=== PATIENT | male | born 1960 | race Hispanic/Latino ===

== ENCOUNTER → 2023-12-28 | Outpatient (CLI) | payer OTHER ==
--- NOTE | 2024-01-02 14:24 | HMCSR ---
APPROVED REPORT EXAM: Two-dimensional and M-mode echocardiogram with Doppler and color Doppler. INDICATION ICD: Non-rheumatic aortic valve regurgitation I35.1 2D Dimensions RVDd5.6 cmLVEF(%)29.8 (>50%)LVED Vol(simp.)180.0 mL IVSd1.2 (0.7-1.1cm)FS(%)14 %LVES Vol(simp.)109.0 mL LVDd5.3 (3.8-5.6cm)Ao Root(2D)4.1 (2.0-3.7cm)LVEF(%, simp.)40 % PWd1.2 (0.7-1.1cm)LVOT diam2.5 (1.8-2.4cm)LA ESV INDEX (BP)44.23 mL/m2 LVDs4.5 (2.5-4.0cm)IVC diam2.2 cm Aortic Valve AoV Vmax2.2 m/Giuseppe Peak GR19.6 mmHgLVOT Vmax1.0 m/s AoV VTI0.5 mAo Mean GR12.2 mmHgLVOT VTI0.22 m MIKAL (VMAX)2.1 cm2Al P1/2T471 msAVA (VTI) 2.1 cm2 Mitral Valve MV E Vmax53.5 cm/sDECEL Znjn747 ms MV A Vmax40.4 cm/sP 1/2 T54 ms E/A ratio1.3MVA (PHT)4.0 cm2 MR Max PG61 mmHg TDI E/E' Medial8.2E/E' Lateral5.7 Pulmonary Valve PV Vmax0.9 m/sPV VTI0.20 mPV Mean GR2 mmHg PV Peak GR3.3 mmHgPI End Annemarie. Pj 0.9 cm/s Tricuspid Valve TR Vmax2.4 m/sRAP (EST) 8 czPmCEPG10.4 mmHg TR Peak GR22.4 mmHg Left Ventricle Left ventricular cavity size is normal. There is mild concentric left ventricular hypertrophy. LVEF i s 40%. No left ventricle thrombus noted on this study. Indeterminate diastolic dysfunction. Right Ventricle The right ventricle is moderately dilated. The right ventricular systolic function is normal. Atria The left atrium is moderately dilated. The right atrium is moderately dilated. Aortic Valve Aortic valve is trileaflet. Aortic valve leaflets are sclerotic but open well. Mild aortic regurgitat ion. There is no aortic valvular stenosis. Mitral Valve Mitral valve leaflets are mildly slcerotic but open well. Mitral regurgitation is trace. There is no mitral valve stenosis. Tricuspid Valve The tricuspid valve leaflets appear normal. There is trace tricuspid regurgitation. Right ventricular systolic pressure is estimated at 30 mmHg. Pulmonic Valve The pulmonic valve leaflets are thin and pliable; valve motion is normal. There is trace pulmonic lianna vular regurgitation. Great Vessels Aortic root is dilated at 4.1cm. The ascending aorta is dilated at 5.1cm. IVC is dilated and collapse s >50% with inspiration. Pericardium No pericardial effusion. Conclusion Left ventricular cavity size is normal. There is mild concentric left ventricular hypertrophy. LVEF is 40%. The right ventricle is moderately dilated. The left atrium is moderately dilated. The right atrium is moderately dilated. Aortic valve is trileaflet. Aortic valve leaflets are sclerotic but open well. Mild aortic regurgitation. Mitral valve leaflets are mildly slcerotic but open well. Mitral regurgitation is trace. There is trace tricuspid regurgitation. Right ventricular systolic pressure is estimated at 30 mmHg. There is trace pulmonic valvular regurgitation. Aortic root is dilated at 4.1cm. IVC is dilated and collapses >50% with inspiration. No pericardial effusion.
== END | disposition home or self-care (01) ==
LOC: SHCH 14:11
PROVIDERS: ATTEND Internal Medicine Cardiovascular Disease
DX: I08.0 Rheumatic disorders of both mitral and aortic valves (principal)
CPT/HCPCS: 93306

== ENCOUNTER → 2024-01-13 | Outpatient (CLI) | payer OTHER ==
[2024-01-13 12:59] LABS: CREATININE 1.2 mg/dL (0.5-1.3); POTASSIUM 4.8 mmol/L (3.5-5.1)
== END | disposition home or self-care (01) ==
LOC: LAB 08:53
PROVIDERS: ATTEND Internal Medicine Cardiovascular Disease
DX: I10 Essential (primary) hypertension (principal)
CPT/HCPCS: 36415; 80048

== ENCOUNTER → 2024-01-31 | Outpatient (CLI) | payer OTHER ==
[2024-01-31 12:41] LABS: CREATININE 1.5 mg/dL (0.5-1.3); POTASSIUM 4.9 mmol/L (3.5-5.1)
== END | disposition home or self-care (01) ==
LOC: LAB 10:33
PROVIDERS: ATTEND Internal Medicine Cardiovascular Disease
DX: I10 Essential (primary) hypertension (principal)
CPT/HCPCS: 36415; 80048

== ENCOUNTER → 2024-02-15 | Outpatient (CLI) | payer OTHER ==
[2024-02-15] MEDS: REGADENOSON 0.4 MG/5 ML PF SYG IVP ONE (14:08)
--- NOTE | 2024-02-17 08:00 | HMCSR ---
APPROVED REPORT Height: 5 ft 10in Weight: 235 lbs TEST INDICATIONS CAD The imaging protocol used to acquire images was Rest Tc-99m/stress Tc-99m 1 day Consent: The procedure was explained and understood by the patient. Informerd consent was witnessed Asael Walters RN First, low dose rest was performed then high dose stress. RESTING DATA: The resting ekg shows: Atrial Fibrillation Rest SPECT myocardial perfusion imaging was performed in supine position 68 minutes following the int ravenous injection of 10.5 mCi of Tc-99 Sestamibi. Time of rest injection: 09:15: Date: 02/15/2024 Time of rest imagin:23: Date: 02/15/2024 PHARMACOLOGIC STRESS: Pharmacologic stress test was performed by injecting regadenoson 0.4 mg IV push followed by the intra venous injection of 34.6 mCi of Tc-99 Sestamibi. Time of stress injection: 10:55: Date: 02/15/2024 Time of stress imagin:49: Date: 02/15/2024 Heart Rate at time of stress injection: 74 bpm. Gated Stress SPECT was performed 114 minutes after stress injection. The images were gated to evaluate regional wall motion and calculate left ventricular ejection fracti on. STRESS DETAILS Reason for Termination: Infusion complete Stress Symptoms: Dyspnea Max HR Achieved: 93 bpm % of APMHR Achieved: 60 Max Blood Pressure: 127/66 mmHg Stress ECG: Atrial Fibrillation LEFT VENTRICLE Size: The left ventricular size is normal. Systolic Function:The left ventricular systolic function is mildly decreased. Wall Motion: Global hypokinesis. The left ventricular ejection fraction was calculated to be 47%.TID = . LV PERFUSION Partially reversible eugene-lateral defect. Predominantly fixed inferior thinning. Conclusion The left ventricular size is normal. The left ventricular systolic function is mildly decreased. Global hypokinesis. Partially reversible eugene-lateral defect. Predominantly fixed inferior thinning. The left ventricular ejection fraction was calculated to be 47%.
== END | disposition home or self-care (01) ==
LOC: SHCH 08:57
PROVIDERS: ATTEND Internal Medicine Cardiovascular Disease
DX: I48.91 Unspecified atrial fibrillation (principal); I50.20 Unspecified systolic (congestive) heart failure; I25.10 Atherosclerotic heart disease of native coronary artery without angina pectoris; R06.00 Dyspnea, unspecified
CPT/HCPCS: 78452; 93017; J2785; A9500 ×2

== ENCOUNTER → 2024-02-21 | Outpatient (CLI) | payer OTHER ==
[~2024-02-21] MED LIST: IOHEXOL-350 50ML VIAL IV ONE
--- NOTE | 2024-02-21 12:49 | HMCIMG ---
CT CHEST W/WO CONTRAST HISTORY: Shortness of breath COMPARISON: None TECHNIQUE: Multiple sequential axial images of the chest were obtained from the thoracic inlet through upper abdomen. Patient was given 50 cc of Omnipaque through intravenous route. FINDINGS: There is no evidence of pulmonary nodule or parenchymal disease. There are mild interstitial fibrosis. There is thoracic aortic aneurysm measuring 4.8 x 5 cm. No pleural effusion or pericardial effusion is seen. There is no evidence of pneumothorax. There are normal size mediastinal and hilar lymph nodes. The heart is not enlarged. Degenerative changes of the thoracolumbar spine are present. There is no evidence of adrenal nodule. IMPRESSION: 1. No evidence of pulmonary nodule or effusion is seen. Thoracic aortic aneurysm measuring 4.8 x 5 cm. Small hiatal hernia is seen. CT was performed with one or more following dose reduction techniques: automated exposure control, adjustment of the mA and kv according to patient's size, or use of a iterative reconstruction technique.
== END | disposition home or self-care (01) ==
LOC: RAH 10:47
PROVIDERS: ATTEND Internal Medicine Cardiovascular Disease
DX: I71.20 Thoracic aortic aneurysm, without rupture, unspecified (principal); R06.02 Shortness of breath; K44.9 Diaphragmatic hernia without obstruction or gangrene; I38 Endocarditis, valve unspecified; M47.815 Spondylosis without myelopathy or radiculopathy, thoracolumbar region
CPT/HCPCS: 71270; Q9967

== ENCOUNTER 2024-03-20 07:02 | Day surgery (SDC) | payer OTHER ==
[2024-03-16 09:10] LABS: BASOPHILS # (AUTO) 0.02 K/uL (0.00-0.20); BASOPHILS % (AUTO) 0.3 % (0.0-5.0); EOSINOPHILS % (AUTO) 1.5 % (0.0-8.0); HEMATOCRIT 54.1 % (42-54); IMMATURE GRANULOCYTE ABSOLUTE 0.02 K/uL (0-1); LYMPHOCYTES # (AUTO) 2.8 K/uL (1.0-4.8); LYMPHOCYTES % (AUTO) 41.8 % (21.0-51.0); MEAN CORPUSCULAR HGB CONC 33.8 g/dL (32.0-36.0); MEAN CORPUSCULAR VOLUME 88.7 fL (79-99); MONOCYTES # (AUTO) 0.5 K/uL (0.1-1.0); NEUTROPHILS # (AUTO) 3.3 K/uL (1.8-7.7); NEUTROPHILS % (AUTO) 49.1 % (40.0-77.0); PLATELET COUNT (AUTO) 136 K/uL (130-400); RED CELL DISTRIBUTION WIDTH 14.5 % (11.0-15.5); WHITE BLOOD COUNT (AUTO) 6.8 K/uL (4.8-10.8)
[2024-03-16 09:11] LABS: APPEARANCE,URINE CLEAR (CLEAR); BILIRUBIN,URINE NEGATIVE (NEGATIVE); GLUCOSE, URINE (UA) NEGATIVE (NEGATIVE); KETONES,URINE NEGATIVE (NEGATIVE); LEUKOCYTE ESTERASE ,URINE NEGATIVE Leu/uL (NEGATIVE); NITRATE,URINE NEGATIVE (NEGATIVE); OCCULT BLOOD,URINE NEGATIVE (NEGATIVE); PH,URINE 5.5 (5.0-8.0); PROTEIN,URINE 10 mg/dL (NEGATIVE); UROBILINOGEN,URINE 0.2 mg/dL (0.2-1.0)
[2024-03-16 09:12] LABS: ADD UA MICROSCOPIC YES; COLOR,URINE LIGHT-YELLOW (YELLOW)
[2024-03-16 09:14] LABS: WBC,URINE 0-1 /HPF (0-1)
[2024-03-16 09:24] LABS: POTASSIUM 4.5 mmol/L (3.5-5.1)
[2024-03-16 09:26] LABS: INR 0.98 (0.85-1.15)
--- NOTE | 2024-03-16 09:27 | EKG ---
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
[2024-03-16 09:31] VITALS: BP 127/76; PULSE 100; RESP 18; TEMP 96.8
[2024-03-16 09:32] LABS: B-TYPE NATRIURETIC PEPTIDE 96 pg/mL (0-100)
--- NOTE | 2024-03-16 10:31 | HMCIMG ---
Exam Type: CHEST 1VW Clinical Information: PREOP Comparison: None Findings: The lungs are clear of infiltrates. The heart is normal in size. The bony and soft tissue structures of the chest are unremarkable. Impression: Clear lungs.
--- NOTE | 2024-03-17 16:52 | NUR ---
report dr rojas notified pt held eliquis 72 hrs vs 48hr. ok to proceed
[2024-03-20] VITALS (8 sets, daily range): BP systolic 118–142; BP diastolic 75–91; PULSE 75–87; RESP 14–17; TEMP 97.2
[~2024-03-20] VITALS: Ht 182.9 cm; Wt 103.3 kg
[~2024-03-20 07:02] MED LIST changes: +APIX5TAB PO; -IOHEXOL-350 50ML VIAL IV ONE; +METO-391 PO; +[UNRECOGNIZED DRUG - CODE] PO; +[UNRECOGNIZED DRUG - OTHER] PO; +[UNRECOGNIZED DRUG - OTHER] PO; +moringa PO
[2024-03-20] MEDS ORDERED: 0.9%NACL 1000ML 1,000 ML IV SCH ×2 (07:30→11:30)
[2024-03-20] MEDS ORDERED: LIDOCAINE HCL 400MG/20ML VIAL ONE (09:11)
[2024-03-20] MEDS ORDERED: IOHEXOL-350 75 ML VIAL IV ONE (09:11)
[2024-03-20] MEDS ORDERED: HEParin-NS 1,000 UNIT/500 ML 1,000 ML IV ONE (09:11)
[2024-03-20] MEDS ORDERED: SODIUM BICARB 50MEQ 50ML VIAL 50 ML ONE (09:11)
[2024-03-20] MEDS ORDERED: HEParin 10,000 UNIT/10ML (1,000 UNIT/ML) VIAL ONE (09:11)
[2024-03-20] MEDS ORDERED: NITROGLYCERIN 50MG VIAL ONE (09:12)
[2024-03-20] MEDS ORDERED: niCARDIpine 25MG INJ IV ONE (09:12)
[2024-03-20] MEDS ORDERED: MEPERIDINE-PF 50 MG/ML SYG ONE (09:34)
[2024-03-20] MEDS ORDERED: MIDAZOLAM HCL 1 MG/ML 2ML VIAL ONE ×2 (09:34→10:20)
[2024-03-20] MEDS ORDERED: IOHEXOL-350 50ML VIAL IV ONE (10:27)
[2024-03-20] MEDS ORDERED: SACU1TAB PO (11:58)
--- NOTE | 2024-03-20 13:29 | NUR ---
VAS BAND REMOVED RIGHT RADIAL SITE ASYMPTOMATIC. DRESSED WITH STERILE GAUZE AND TEGADERM.
--- NOTE | 2024-03-20 14:27 | PR ---
PROCEDURES: * Left heart catheterization. * Selective right and left coronary arteriogram. * Placement of a pigtail catheter in the aortic root. * Aortic root angiogram. * Conscious sedation for 1 hour. INDICATIONS: * Cardiomyopathy. * Abnormal Lexiscan Cardiolite. * Aortic insufficiency. * Ascending aortic aneurysm. COMPLICATIONS: None. TOTAL CONTRAST: 93 mL. APPROACH: Right radial approach. DESCRIPTION OF PROCEDURE: The patient was taken to the cardiac sleep lab technician after the appropriate operative consents were signed. He was prepped and draped in the usual fashion. After conscious sedation was administered, the right radial artery region was infiltrated with 2% Xylocaine without epinephrine. A 6-Icelandic slender radial sheath was advanced in retrograde fashion by modified Seldinger technique. It was fairly evident that the patient had a very tortuous brachiocephalic access which made cannulation of the coronaries quite difficult and exchanged for R2P 6-Icelandic slender 75 sheath which was placed in the ascending aorta just proximal to the arch takeoff. At this point, a TIG 4 catheter was placed in the left ventricular cavity over an indwelling wire. Left ventricular end-diastolic pressure measurement was obtained. Ventriculography was deferred. The EF was 40% by echocardiography. Pullback revealed no aortic stenosis. The TIG 4 was cannulated into the right coronary artery. This was imaged in multiplane. This was a large ectatic vessel that gave rise to an acute marginal large PDA and PLVB system. There were no significant lesions in the right coronary artery. The left coronary artery was subselectively imaged by TIG 4 catheter, then finally we changed to an FL4 and then FL5 and then we finally elected to use an XB 4 guide. This was selected into the left main and unfortunately was deep seated into the LAD, however, there was no jonny. Imaging was obtained with adequate filling of both the LAD system and a circumflex. The left main was normal and free of disease, bifurcated into LAD, and circumflex. The LAD was a large vessel that gave rise to a large branching diagonal and ongoing LAD. There were no significant lesions in the LAD system. The circumflex was a large vessel that gave rise to a large obtuse marginal branch. The circumflex system was free of disease. At this point, a pigtail catheter was placed in the aortic root. Aortic root angiogram was performed in MACANESE projection. This identified the presence of 2+ aortic insufficiency. The aortic root was markedly dilated. At this point, the procedure was completed, the catheter and the sheath were pulled over an indwelling wire, and a radial band was applied with good hemostasis. The patient tolerated the procedure well and left the cardiac sleep lab technician in stable condition. FINAL IMPRESSION: * Large, normal epicardial coronary arteries. * Cardiomyopathy with EF of 40% by echocardiography. * No aortic stenosis. * 2+ AI. PLAN: Continue to optimize medical management. TID: [id number] RECEIPT: [id number]
== END 2024-03-20 15:01 | disposition home or self-care (01) ==
LOC: DAH 07:02
PROVIDERS: ATTEND Internal Medicine Cardiovascular Disease
DX: R94.39 Abnormal result of other cardiovascular function study (principal); I35.1 Nonrheumatic aortic (valve) insufficiency; I71.21 Aneurysm of the ascending aorta, without rupture; I42.9 Cardiomyopathy, unspecified; I25.118 Atherosclerotic heart disease of native coronary artery with other forms of angina pectoris; I50.42 Chronic combined systolic (congestive) and diastolic (congestive) heart failure; I48.19 Other persistent atrial fibrillation; N18.30 Chronic kidney disease, stage 3 unspecified; E66.9 Obesity, unspecified; Z68.32 Body mass index [BMI] 32.0-32.9, adult; Z82.49 Family history of ischemic heart disease and other diseases of the circulatory system; Z79.899 Other long term (current) drug therapy; Z79.01 Long term (current) use of anticoagulants
CPT/HCPCS: 80048; 83880; 85025; 85610; 85730; 81001; 36415; 71045; 93005; 93458; 93567; 82948; C1887 ×2; C1769; A4649; C1894; J3490 ×4; J1644 ×2; J2250 ×2; J2175; Q9967 ×2; A4215; A4222; A6260; A4221; A4663; A4216; A4606; A4223 ×3; 96360; 96361; 99156; 99157

== ENCOUNTER → 2024-05-17 | Outpatient (CLI) | payer OTHER ==
[~2024-05-17] MED LIST changes: +SACU1TAB PO
--- NOTE | 2024-05-18 07:01 | HMCSR ---
APPROVED REPORT EXAM: Two-dimensional and M-mode echocardiogram with Doppler and color Doppler. INDICATION ICD: I50.22 Chronic systolic CHF 2D Dimensions RVDd4.5 cmLVEF(%)43.5 (>50%)LVED Vol(simp.)133.0 mL IVSd1.0 (0.7-1.1cm)FS(%)22 %LVES Vol(simp.)74.0 mL LVDd5.2 (3.8-5.6cm)Ao Root(2D)4.0 (2.0-3.7cm)LVEF(%, simp.)44 % PWd1.1 (0.7-1.1cm)LVOT diam2.4 (1.8-2.4cm)LA ESV INDEX (BP)41.26 mL/m2 LVDs4.1 (2.5-4.0cm) Aortic Valve AoV Vmax2.0 m/Giuseppe Peak GR16.4 mmHgLVOT Vmax0.8 m/s AoV VTI0.4 mAo Mean GR10.6 mmHgLVOT VTI0.16 m MIKAL (VMAX)1.7 cm2Al P1/2T773 msAVA (VTI) 1.7 cm2 Mitral Valve MV E Vmax56.5 cm/s MR Max PG86 mmHg Pulmonary Valve PV Vmax0.8 m/sPV VTI0.14 mPV Mean GR1 mmHg PV Peak GR2.3 mmHg Tricuspid Valve TR Vmax2.1 m/sRAP (EST) 8 soIqWWGX11.0 mmHg TR Peak GR17.0 mmHg Left Ventricle Left ventricular cavity size is normal. There is borderline left ventricular hypertrophy. LVEF is 40- 45%. No left ventricle thrombus noted on this study. The LV diastolic function was unable to be asses sed due to atrial arrhythmia. Right Ventricle The right ventricle is moderately dilated. The right ventricular systolic function is normal. Atria The left atrium is mildly to moderately dilated. The right atrium is severely dilated. Aortic Valve Aortic valve is possibly bicuspid. Right and left coronary cusps appear fused. Mild to moderate aorti c regurgitation. AV Dimensionless Index is 0.37 Calculated aortic valve area is 1.7 cm2 with maximum pressure gradient of 16.4 mmHg and mean pressure gradient of 10.6 mmHg, consistent with mild aortic s tenosis. Mitral Valve Mitral valve leaflets are mildly sclerotic but open well. Mitral regurgitation is trace to mild. Ther e is no mitral valve stenosis. Tricuspid Valve The tricuspid valve leaflets appear normal. There is trace to mild tricuspid regurgitation. Right lory tricular systolic pressure is estimated at less than 30 mmHg. Pulmonic Valve Pulmonic valve is not well visualized. There is trace pulmonic valvular regurgitation. Great Vessels Aortic root is moderately dilated. Ascending aorta is dilated. IVC is not well visualized. Pericardium No pericardial effusion. Conclusion Left ventricular cavity size is normal. LVEF is 40-45%. There is borderline left ventricular hypertrophy. The right ventricle is moderately dilated. The left atrium is mildly to moderately dilated. The right atrium is severely dilated. Aortic valve is possibly bicuspid. Right and left coronary cusps appear fused. Mild to moderate aortic regurgitation. Calculated aortic valve area is 1.7 cm2 with maximum pressure gradient of 16.4 mmHg and mean pressure gradient of 10.6 mmHg, consistent with mild aortic stenosis. Mitral valve leaflets are mildly sclerotic but open well. Mitral regurgitation is trace to mild. There is trace to mild tricuspid regurgitation. Right ventricular systolic pressure is estimated at less than 30 mmHg. There is trace pulmonic valvular regurgitation. Aortic root is moderately dilated. No pericardial effusion.
== END | disposition home or self-care (01) ==
LOC: SHCH 08:23
PROVIDERS: ATTEND Internal Medicine Cardiovascular Disease
DX: I08.3 Combined rheumatic disorders of mitral, aortic and tricuspid valves (principal); I50.22 Chronic systolic (congestive) heart failure
CPT/HCPCS: 93306

== ENCOUNTER 2025-01-17 11:13 | Emergency (ER) | payer OTHER ==
[~2025-01-17] VITALS: Ht 182.9 cm; Wt 104.3 kg
[2025-01-17 11:21] VITALS: BP 111/68; PULSE 99; RESP 16; TEMP 98.1
--- NOTE | 2025-01-17 11:37 | NUR ---
PT SIGNED AMA PAPER WORK, REPORTS " MY STOMACH IS MORE IMPORTANT TO ME RIGHT NOW". PT REPORTS HE WILL FOLLOW UP WITH DR. GRIMM. MADE DR. MARCOS AWARE.
--- NOTE | 2025-01-17 11:40 | ERN ---
ED Note History of Present Illness Stated Complaint: SEIZURES Chief Complaint: Seizure Time Seen by MD: 11:27 Dictation: 64-year-old male presenting to the emergency department by EMS after patient had an episode of seizure-like activity while at the park with his , reported patient was foaming at the mouth that symptoms lasted for under a minute, patient alert and oriented and reports that he is hungry and wants to leave. Allergies: Coded Allergies: No Known Drug Allergies (Unverified Allergy, Unknown, 03/16/24) Home Meds Reported Medications Sacubitril/Valsartan (Entresto 24 mg-26 mg Tablet) 24 Mg-26 Mg Tablet, 1 EACH PO TID, TAB 03/20/24 Metoprolol Succinate (Metoprolol Succinate) 50 Mg Tab.er.24h, 50 MG PO HS, TAB 03/16/24 [advance 3] No Conflict Check, 2 CAP PO DAILY 03/16/24 [moringa] No Conflict Check, 1 TAB PO DAILY 03/16/24 [cardo lanny] No Conflict Check, 1 TAB PO DAILY 03/16/24 Arginine HCl (l-Arginine) 1,000 Mg Tablet, 1000 MG PO DAILY, TAB 03/16/24 Apixaban (Eliquis) 5 Mg Tablet, 5 MG PO BID, TAB 03/16/24 Past Medical History Past Medical History: A-Fib Surgical History: None Review of System Dictation Constitutional: Negative for fever,chills, and weight loss Eyes: Negative for injury, pain,redness, and discharge ENT: Negative for injury,pain or swelling Cardiovascular: Negative for chest pain, palpitations, and edema Respiratory: Negative for shortness of breath, cough, and wheezing, Abdomen/GI: Negative for abdominal pain, nausea, vomiting, diarrhea, and constipation Back: Negative for injury and pain : Negative for injury, bleeding and discharge MS/Extremity: Negative for injury and deformity Skin: Negative for rash, and discoloration Neuro: Per HPI Initial Vital Sign VS Vital Signs Date Time Temp Pulse Resp B/P (MAP) Pulse Ox O2 Delivery O2 Flow Rate FiO2 01/17/25 11:21 98.1 99 16 111/68 98 Room Air 0 Physical Exam Dictation General: awake, alert, NAD Head/Face: Normocephalic, atraumatic Eyes: PERRL, EOMI, vision at baseline ENT: oral cavity clear, TMs clear, no signs of infection Neck: Trachea midline, supple, no nuchal rigidity Cardiovascular: RRR, normal S1/S2, No MRGs, no JVD Respiratory: CTAB, no respiratory distress, No rales or wheezes Abdomen: Soft, non-tender, non-distended, normal bowel sounds, no guarding or rebound. Skin: Warm, dry, normal turgor, no rash MS/Extremity: Pulses equal, no cyanosis, neurovascular intact, FROM Neuro: COAx4, GCS 15, strength 5/5, CN 2-12 intact, normal cerebellar exam, normal gait, Psych: Normal behavior, mood, and affect normal ED Course ED Course Orders Procedure Category Date Status Time 12 Lead Ekg Tracing- EKG 01/17/25 Logged Technical 11:32 Basic Metabolic Panel LAB 01/17/25 Logged 11:32 Cbc With Differential LAB 01/17/25 Logged 11:32 Hepatic Function Panel LAB 01/17/25 Logged 11:32 Creatine Kinase, Total LAB 01/17/25 Logged 11:32 Troponin I High LAB 01/17/25 Logged Sensitivity 11:32 Ct Head/Brain W/O CT 01/17/25 Logged Contrast 11:32 Chest 1vw RAD 01/17/25 Logged 11:32 Levetiracetam 500 PHA 01/17/25 Complete Mg/5 Ml Sd V (Keppra 5 11:32 Current Medications Medications (Trade) Dose Ordered Sig/Adri Route PRN Reason Start Time Stop Time Status Last Admin Dose Admin Levetiracetam (kepPRA 500 MG/5 ML SD VIAL) 1,000 mg ONCE STAT IV 01/17/25 11:32 01/17/25 11:37 DC Vital Signs Date Time Temp Pulse Resp B/P (MAP) Pulse Ox O2 Delivery O2 Flow Rate FiO2 01/17/25 11:21 98.1 99 16 111/68 98 Room Air 0 Medical Decision Making MDM Patient left against medical advice C0 a x4, nursing staff at bedside explained risks and benefits, had him sign forearm, and walked out of the emergency department did not allow for workup which we recommended blood work and CT scan and allow for seizure medication to be given. DX & DISP Disposition: AMA Departure Impression: Primary Impression: Seizure-like activity Condition: Stable Referrals: ISMAEL FERREIRA MD (PCP) ABIDA MARCOS MD Jan 17, 2025 11:40
[2025-01-20] MEDS ORDERED: METO50TA9 PO (10:26)
== END 2025-01-17 11:35 | disposition left against medical advice (07) ==
LOC: EDH 11:13
DX: R25.9 Unspecified abnormal involuntary movements (principal); I48.91 Unspecified atrial fibrillation; Z79.01 Long term (current) use of anticoagulants; Z79.899 Other long term (current) drug therapy; Z53.29 Procedure and treatment not carried out because of patient's decision for other reasons
CPT/HCPCS: 99282; 99283